=== PATIENT | female | born 1945 | race Caucasian/White ===

== ENCOUNTER → 2018-08-15 | Outpatient (CLI) | payer MEDICARE ==
--- NOTE | 2018-08-15 10:06 | US ---
Procedure: US CAROTID DOPPLER BILATERAL Exam Date: 08/15/2018 Ordering Provider: Juan Miles Clinical Indication: OCCLUSION AND STENOSIS OF UNSPECIFIED CAROTID ARTERY Comparison: None TECHNIQUE : Real-time cerebrovascular ultrasonography was obtained from sternal notch to the angle of the mandible bilaterally utilizing alejandra scale, color flow and spectral Doppler analysis. Systolic velocity ratios were calculated for internal carotid artery to common carotid artery bilaterally. FINDINGS: RIGHT CAROTID BIFURCATION: Mild atherosclerotic plaque. Peak systolic and end-diastolic velocities in the right internal carotid artery are 77 and 27 cm/s. Internal carotid/common carotid ratio is 1.0. Right vertebral flow is antegrade. LEFT CAROTID BIFURCATION: Mild atherosclerotic plaque. Peak systolic and end-diastolic velocities in the left internal carotid artery are 114 and 43 cm/s. Internal carotid/common carotid ratio is 1.3. Left vertebral flow is antegrade. IMPRESSION: 1. Mild atherosclerotic plaque in each carotid bulb and ICA origin. 2. There is no significant stenosis (less than 50%) at either ICA origin. 3. Bilateral antegrade vertebral artery flow. Electronically signed by: Terell Dawn MD 08/15/2018 10:05 AM [facility] [[email or web address]]
== END ==
LOC: US 08:56
PROVIDERS: ATTEND Family Medicine
DX: I65.23 Occlusion and stenosis of bilateral carotid arteries (principal)